=== PATIENT | male | born 1995 | race Caucasian/White ===

== ENCOUNTER 2021-12-26 23:31 | Emergency (ER) | payer SELFPAY ==
[~2021-12-26] VITALS: Ht 162.6 cm; Wt 79.0 kg
[2021-12-27 00:33] LABS: BASOPHILS % 0.9 % (0.0-2.0); EOSINOPHILS % 3.9 % (0.0-5.0); HEMATOCRIT. 44.8 % (42.0-52.0); HEMOGLOBIN. 14.9 g/dL (14.0-18.0); LYMPHOCYTES % 32.7 % (20.0-50.0); MEAN CORPUSCULAR HEMOGLOBIN 33.8 pg (28.0-32.0); MEAN CORPUSCULAR VOLUME 101.3 fL (80.0-94.0); MEAN PLATELET VOLUME 8.5 fl (7.4-10.4); NEUTROPHILS % 55.5 % (40.0-76.0); PLATELET 200 x1000/uL (130-400); RED BLOOD CELL COUNT 4.42 mill/uL (4.7-6.1); RED CELL DISTRIBUTION WIDTH 13.8 % (11.6-14.6)
[2021-12-27 01:41] LABS: CHLORIDE 107 mEq/L (98-107)
[2021-12-27 02:34] LABS: ETHANOL BLOOD 342 mg/dL
[2021-12-27 05:00] VITALS: BP 118/72
== END 2021-12-27 05:30 | disposition home or self-care (01) ==
LOC: ER 23:31
DX: R44.0 Auditory hallucinations (principal); F10.229 Alcohol dependence with intoxication, unspecified; Y90.0 Blood alcohol level of less than 20 mg/100 ml; F32.9 Major depressive disorder, single episode, unspecified; F41.9 Anxiety disorder, unspecified
CPT/HCPCS: 36415; 80053; 80307; 80320; 80329; 82962; 85025; 99283; G0480